=== PATIENT | male | born 1940 | race Caucasian/White ===

== ENCOUNTER 2016-08-24 09:54 | Emergency (ER) | payer OTHER ==
[2016-08-24 10:14] VITALS: TEMP 98.2; BMI 27.6
--- NOTE | 2016-08-24 11:48 | PDOC ---
[id number] No Limitations - History of Present Illness Initial Comments: CHIEF COMPLAINT: 76 y/o afebrile male with PMH HTN, GERD and anxiety c/o abd pain and diarrhea for the past 3 days. HISTORY OF PRESENT ILLNESS: The patient states for the past 3 days he's had watery diarrhea and abdominal pain. He also admits to decreased appetite. He denies f/c, n/v, cough, CP, SOB, back pain, hematuria, dysuria. He has not taken anything for his pain. Vital signs on arrival are within normal limits. REVIEW OF SYSTEMS: GENERAL/CONSTITUTIONAL: No fever/chills. No weakness. No weight change. HEAD, EYES, EARS, NOSE AND THROAT: No change in vision. No ear pain or discharge. No sore throat. CARDIOVASCULAR: No chest pain or shortness of breath. RESPIRATORY: No cough, wheezing, or hemoptysis. GASTROINTESTINAL: +abd pain and diarrhea. No nausea or vomiting. GENITOURINARY: No dysuria, frequency, or change in urination. MUSCULOSKELETAL: No joint or muscle swelling or pain. No neck or back pain. SKIN: No rash or easy bruising. NEUROLOGIC: No headache, vertigo, loss of consciousness, or loss of sensation. PHYSICAL EXAM: GENERAL: The patient is awake, alert, and fully oriented, in no acute distress. He is uncomfortable appearin. HEAD: Normal with no signs of trauma. ENT: Pupils equal, round and reactive to light, extraocular movements intact, sclera anicteric, conjunctiva clear. Neck supple. LUNGS: Clear to auscultation bilaterally. Normal excursion. No respiratory distress or use of accessory muscles. CV: RRR, S1/S2, no MRG. Cap refill < 2 sec. ABDOMEN: Soft, non-distended, TTP of RLQ. No rebound, guarding or rigidity. Negative psoas and obturator signs. Negative Skelton's sign. EXTREMITIES: Normal range of motion, no edema. NEUROLOGICAL: Normal speech, normal gait. CN II-XII grossly intact. PSYCH: Normal mood, normal affect. SKIN: Warm, dry, normal turgor, no rashes or lesions noted. 0 <Hailee Harding - Last Filed: 08/24/16 16:57> <Jasper De Leon - Last Filed: 08/30/16 18:37> - General Chief Complaint: Pain Stated Complaint: ABD PAIN, DIARRHEA Time Seen by Provider: 08/24/16 11:33 Past History - Past Medical History Cancer: Yes (Laryngeal cancer 2004) HTN: Yes - Psycho/Social/Smoking Cessation Hx Suicidal Ideation: No Smoking History: Never smoked Information on smoking cessation initiated: No Hx Alcohol Use: No Drug/Substance Use Hx: No Substance Use Type: None <Hailee Harding - Last Filed: 08/24/16 16:57> <Jasper De Leon - Last Filed: 08/30/16 18:37> - Past Medical History Allergies/Adverse Reactions: Allergies Allergy/AdvReac Type Severity Reaction Status Date / Time No Known Allergies Allergy Verified 08/24/16 10:13 Home Medications: Ambulatory Orders Diazepam 5 mg PO DAILY 08/24/16 Omeprazole 40 mg PO DAILY 08/24/16 Valsartan/Hydrochlorothiazide [Valsartan-Hctz 80-12.5 mg Tab] 80 mg PO DAILY 04/30 *Physical Exam - Vital Signs Last Vital Signs Temp Pulse Resp BP Pulse Ox 98.2 F 85 18 159/90 97 08/24/16 10:11 08/24/16 10:11 08/24/16 10:11 08/24/16 10:11 08/24/16 10:11 <Hailee Harding - Last Filed: 08/24/16 16:57> - Vital Signs Last Vital Signs Temp Pulse Resp BP Pulse Ox 98.2 F 81 20 148/104 97 08/24/16 10:11 08/24/16 17:18 08/24/16 17:18 08/24/16 17:18 08/24/16 10:11 <Jasper De Leon - Last Filed: 08/30/16 18:37> ED Treatment Course - LABORATORY CBC & Chemistry Diagram: 08/24/16 12:18 08/24/16 12:19 <Hailee Harding - Last Filed: 08/24/16 16:57> - LABORATORY CBC & Chemistry Diagram: 08/24/16 12:18 08/24/16 12:19 - ADDITIONAL ORDERS Additional order review: 08/24/16 12:18 RBC 4.59 MCV 94.0 MCHC 33.2 RDW 14.3 MPV 9.1 Neutrophils % 70.8 Lymphocytes % 20.4 Monocytes % 7.9 Eosinophils % 0.5 Basophils % 0.4 - Medications Given in the ED: ED Medications Discontinued Medications Generic Name Dose Route Start Last Admin Trade Name Julee PRN Reason Stop Dose Admin Acetaminophen 1,000 mg 08/24/16 11:49 08/24/16 12:21 Ofirmev Injection - IVPB 08/24/16 11:50 1,000 mg ONCE ONE Administration Sodium Chloride 1,000 mls @ 1,000 mls/hr 08/24/16 11:49 08/24/16 12:21 Normal Saline - IV 08/24/16 12:48 1,000 mls/hr ASDIR STA Administration <Jasper De Leon - Last Filed: 08/30/16 18:37> Medical Decision Making - Medical Decision Making A/P: 76 y/o afebrile male with abdominal pain and diarrhea for the past 3 days. Plan is as follows: 1. Labs 2. UA 3. IV fluids 4. IV ofirmev 5. CT scan abd/pelvis Labs unremarkable UA normal CT scan abd/pelvis IMPRESSION: No findings of acute pathology. Gave the patient all of his results. He states he feels much better after tylenol. He does admit his symptoms started after he ate a spicy pepper and something with red sauce on it. he admits he is from [place] and is not used to the food here. Will give him a PO zantac and discharge to home with supportive care instructions. The patient was instructed to return to the ER with any worsening or concerning symptoms. The patient verbalizes understanding of all instructions, has no further questions and is awaiting discharge. <Hailee Harding - Last Filed: 08/24/16 16:57> - Medical Decision Making The patient was seen and evaluated in conjunction with MATHIEU Harding under my direct supervision, ancillary studies were reviewed. I agree with the plan as outlined by MATHIEU Harding . <Jasper De Leon - Last Filed: 08/30/16 18:37> *DC/Admit/Observation/Transfer <Hailee Harding - Last Filed: 08/24/16 16:57> <Jasper De Leon - Last Filed: 08/30/16 18:37> Diagnosis at time of Disposition: Gastritis Qualifiers: Gastritis type: unspecified gastritis Chronicity: acute Gastritis bleeding: without bleeding Qualified Code(s): K29.00 - Acute gastritis without bleeding - Discharge Dispostion Disposition: HOME Condition at time of disposition: Improved - Referrals Referrals: Nilson Camacho MD [Primary Care Provider] - - Patient Instructions Printed Discharge Instructions: DI for Gastritis, DI for Gastroesophageal Reflux Disease (GERD), GERD Diet Additional Instructions: Discharge instructions: -You can take over the counter tylenol (650mg every 4 hours for pain if needed) -You can take over the counter Pepcid for gastritis symptoms -Try to follow suggested diet to help prevent symptoms -Return to the ER with any worsening or concerning symptoms.
[2016-08-24] MEDS ORDERED: SODIUM CHLORIDE 1,000 ML IV STA (11:49)
[2016-08-24] MEDS ORDERED: ACETAMINOPHEN 1000 MG/100 ML VIAL (NON FORMULARY) IVPB ONE (11:49)
[2016-08-24] MEDS ORDERED: ACETAMINOPHEN INJECTION 100 ML IVPB ONE (11:55)
[2016-08-24 12:33] LABS: BASOPHIL 0.4 % (0-2.0); EOSINOPHIL 0.5 % (0-4.5); MCH 31.2 pg (25.7-33.7); MCHC 33.2 g/dl (32.0-35.9); MEAN PLT VOLUME 9.1 fl (7.5-11.1); NEUTROPHILS 70.8 % (42.8-82.8); PLATELET COUNT 261 K/MM3 (134-434); RDW 14.3 % (11.9-15.9); WHITE BLOOD COUNT 8.3 K/mm3 (4.0-10.0)
[2016-08-24 12:35] LABS: URINE APPEARANCE CLEAR; URINE BILIRUBIN NEGATIVE (NEGATIVE); URINE BLOOD NEGATIVE (NEGATIVE); URINE COLOR YELLOW; URINE GLUCOSE (UA) NEGATIVE (NEGATIVE); URINE KETONE NEGATIVE (NEGATIVE); URINE LEUK ESTERASE NEGATIVE (NEGATIVE); URINE NITRITE NEGATIVE (NEGATIVE); URINE PROTEIN NEGATIVE (NEGATIVE); URINE UROBILINOGEN NEGATIVE E.U./dl (0.2-1.0)
[2016-08-24 13:33] LABS: ALBUMIN 4.1 g/dl (3.4-5.0); ALK PHOS 69 U/L (45-117); ANION GAP 11 (8-16); BILIRUBIN,TOTAL 0.8 mg/dL (0.2-1.0); CALCIUM 9.2 mg/dL (8.5-10.1); CO2 28 mmol/L (21-32); CREATININE 0.9 mg/dL (0.7-1.3); GLUCOSE,RANDOM 103 mg/dL (74-106); SGOT/AST 23 U/L (15-37); SGPT/ALT 26 U/L (12-78); TOT PROT 8.3 g/dl (6.4-8.2)
[2016-08-24 13:35] LABS: TROPONIN I < 0.02 ng/ml (0.00-0.05)
[2016-08-24] MEDS ORDERED: RANITIDINE HCL 150 MG TABLET (FP) PO ONE (16:57)
[2016-08-24 17:19] VITALS: BP 148/104; PULSE 81
== END 2016-08-24 17:19 | disposition home or self-care (01) ==
LOC: JER 09:54
PROC: 3E033NZ Introduction of Analgesics, Hypnotics, Sedatives into Peripheral Vein, Percutaneous Approach (ICD-10-PCS; principal; 2016-08-24)
DX: K29.00 Acute gastritis without bleeding (principal); I10 Essential (primary) hypertension; K21.9 Gastro-esophageal reflux disease without esophagitis; F41.9 Anxiety disorder, unspecified
CPT/HCPCS: 36415; 74176-TC; 80053; 81003; 82550; 83690; 84484; 85025; 99283-25; Q9967

== ENCOUNTER 2017-12-08 09:51 | Day surgery (SDC) | payer OTHER ==
[2017-12-06 19:13] VITALS: BMI 27.7
--- NOTE | 2017-12-08 09:49 | HP ---
History & Physical Update - History History: No Change - Physical Physical: No Change - Assessment Assessment: No Change - Plan Plan: No Change (75 year old man with bilateral inguinal hernia , left larger than right , incarcerated. Risks , benefits and complications were explained, including, infection , urinary retention , bleeding, pain, and conversion to open, and recurrence.)
[2017-12-08] MEDS ORDERED: BUPIVACAINE HCL/PF 0.5% (5MG/ML) 10 ML VIAL ONE (13:34)
[2017-12-08] MEDS ORDERED: MIDAZOLAM HCL 2 MG/2 ML SINGLE DOSE VIAL ONE (13:51)
[2017-12-08] MEDS ORDERED: fentaNYL CITRATE 250 MCG/5 ML VIAL ONE (13:56)
[2017-12-08] MEDS ORDERED: LIDOCAINE HCL/PF 2% SDV 5ML VIAL ONE (13:58)
[2017-12-08] MEDS ORDERED: ceFAZolin SODIUM 1 GM VIAL IVPB ONE (13:58)
[2017-12-08] MEDS ORDERED: PROPOFOL 20 ML ONE (13:58)
[2017-12-08] MEDS ORDERED: ROCURONIUM BROMIDE 50 MG/5 ML VIAL ONE ×2 (14:00→15:09)
[2017-12-08] MEDS ORDERED: DEXAMETHASONE SOD PHOSPHATE 4 MG/1 ML VIAL ONE (16:03)
[2017-12-08] MEDS ORDERED: ONDANSETRON 4 MG/2 ML VIAL ONE (16:03)
[2017-12-08] MEDS ORDERED: GLYCOPYRROLATE 0.2 MG/1 ML VIAL ONE ×2 (16:39→16:42)
[2017-12-08] MEDS ORDERED: NEOSTIGMINE METHYLSULFATE 0.5 MG/ML - 10 ML MDV ONE (16:39)
--- NOTE | 2017-12-08 16:55 | OP ---
Operative Note - Note: Operative Date: 12/08/17 Pre-Operative Diagnosis: Bilateral inguinal hernia, incarcerated. Operation: Laparoscopic repair of bilateral inginal hernia , with mesh. Findings: Large and wide indirect sac on the left side, Indirect hernia on left. Wide internal ring on right. Repaired with 3D max mesh , medium size. Implants: 3D max mesh , medium size bilaterally. Post-Operative Diagnosis: Same as Pre-op Surgeon: Anai Suarez Thread Trimmer: Rimma George Anesthesiologist/DEPUTY CHIEF COUNSEL: Reynaldo Tamayo Anesthesia: General Specimens Removed: Left sided indirect hernia sac. Estimated Blood Loss (mls): 30 Operative Report Dictated: Yes
[2017-12-08] MEDS ORDERED: ACETAMINOPHEN 500 MG TABLET (FP) PO PRN (16:58)
--- NOTE | 2017-12-08 17:03 | SURG ---
Surgery Lepidopterist Note Lepidopterist: Rimma George PA-C Date of Service: 12/08/17 Diagnosis: Bilateral inguinal hernia, incarcerated. Procedure: Laparoscopic repair of bilateral inginal hernia , with mesh. I was present for the entirety of the operative procedure. For further detail, please refer to operative report. Visit type - Case Type Case Type: Scheduled - Emergency Emergency Visit: No - New patient This patient is new to me today: Yes Date on this admission: 12/08/17
[2017-12-08] MEDS ORDERED: BUPIVACAINE HCL/PF (5 MG/ML) 30 ML VIAL IJ ONE (17:06)
[2017-12-08] MEDS ORDERED: ACETAMINOPHEN 1000 MG/100 ML VIAL (NON FORMULARY) IVPB ONE ×2 (18:00→18:06)
--- NOTE | 2017-12-08 20:14 | OP ---
DATE OF OPERATION: 12/08/2017 PREOPERATIVE DIAGNOSIS: Bilateral inguinal hernias. Left side is large, indirect, inguinoscrotal hernia. POSTOPERATIVE DIAGNOSIS: Bilateral inguinal hernias. Left side is large, indirect, inguinoscrotal hernia. OPERATIVE PROCEDURE: Laparoscopic repair of bilateral incarcerated inguinal hernias with mesh. SURGEON: Kg Suarez MD PERCH MACHINE INSPECTOR: MATHIEU Wetzel ANESTHESIA: General. OPERATIVE DESCRIPTION: This 77-year-old man had a large, painful left inguinal hernia which was incarcerated and hard to reduce. He also had a right-sided inguinal hernia. The patient was brought in for laparoscopic repair of bilateral inguinal hernias. Consent was obtained. The risks, benefits and complications had been discussed with the patient. The patient was given general anesthesia. A Townsend catheter was placed in the bladder, which was removed right after the surgery. The patient was given a gram of Ancef. The lower abdomen was painted and draped. A horizontal incision was made about 2 fingerbreadths below the umbilicus of about 3 cm. This was deepened through the skin and subcutaneous fat. The anterior rectus sheath was incised on either side and the posterior rectus sheath was divided in the midline. Space was created between the posterior rectus sheath and peritoneum. This was carried down all the way toward the pubic symphysis. A dilator and a spacer were introduced through this space all the way to the pubic symphysis. The spacer was then fitted to create a preperitoneal space on both sides of the midline. Once this was created, the spacer was removed, the trocar balloon was inflated and the trocar was locked in space to create a closed space. The space was inflated with carbon dioxide at 6 L per minute with a maximum intraabdominal pressure of 15 mmHg. A 10-mm camera was inserted into the space. The camera was switched between 10- and 5-mm, 30-degree as well as 0-degree camera. Under direct vision, two 5-mm trocars were inserted on either side of the midline below the balloon of the trocar. This was noted entering the abdominal cavity under direct vision with the camera. The pubic symphysis and the arch on either side were identified, and all loose area tissue was from the anterior abdominal wall on its posterior aspect. This was carried laterally all the way past the cord structures. On the left side, the cord structures were identified and retracted anteriorly away from the vessels. There was a large, wide indirect hernia going all the way down into the scrotum. This was carefully and brought into the abdominal cavity. This was then divided below the internal ring. This was twisted and then clipped with an Endoclip. The specimen and sac were removed and sent to Pathology. The peritoneum was retracted cephalad into the abdominal cavity. The lateral abdominal wall was also dissected so that the mesh could be placed behind the abdominal wall. The right side was also similarly dissected. There was no indirect hernia going into the scrotum. However, there was a wide internal ring. The peritoneum was again retracted back into the abdominal cavity. Once this was done, the posterior abdominal wall and the groin were ready for placement of a mesh. A 3DMax mesh was placed on either side, the right one going on the right, the left one going on the left. This was of medium size. For the right side, mesh was introduced. It was folded all the way and introduced through the 10-mm port down to the pubic symphysis. Once this was done, the camera was introduced into the space. The letter M was filled medially towards the pubic symphysis, and the mesh was unrolled laterally. The mesh was anchored over the pubic crest with a metallic tacker, unrolled laterally, and laterally, it was anchored with absorbable mesh. A similar procedure was done on the left, introducing the left-sided mesh. This was also anchored below the pubic crest with a metallic tacker and then unrolled laterally and anchored laterally at the level of the anterior-superior iliac spine with the absorbable tacker. Another tacker was placed anteriorly with the angulated absorbable tacker. Both the meshes were adequately placed. The space was irrigated. Estimated blood loss was about 20-30 mL. Hemostasis was satisfactory. Sponge count and instrument count were correct. There was some oozing at the pubic symphysis, which was controlled. There was no bleeding at the completion of the procedure. There was small bleeding from the left inferior epigastric artery. This was controlled with a hemoclip. The abdomen was then deflated, allowing the peritoneum to come against the anterior abdominal wall, holding the mesh again against the anterior abdominal wall. Thus, the repair was adequately performed. The anterior rectus sheath was approximated with interrupted and [id number] 2-0 Vicryl sutures. Next, 0.5% Marcaine was injected into the wound. All instruments were removed. The skin and subcutaneous tissue were approximated with buried interrupted 4-0 Monocryl sutures. Dermabond was applied across the skin edges. The patient tolerated the procedure well, was extubated, and sent to the recovery room in satisfactory and stable condition. Tamara PECK/[id number] cc:
[2017-12-08] MEDS: oxyCODONE HCL 5 MG TABLET PO PRN (21:55)
--- NOTE | 2017-12-09 08:14 | PN ---
Progress Note (short form) - Note Progress Note: Anesthesia post Op Pt seen and examined S:Alert and awake mild discomfort O: Vital Signs Temperature 98.2 F 12/09/17 06:00 Pulse Rate 78 12/09/17 06:00 Respiratory Rate 20 12/08/17 22:00 Blood Pressure 143/83 12/09/17 06:00 O2 Sat by Pulse Oximetry (%) 97 12/08/17 22:00 A/P: s/p lap inguinal hernia bilateral Doing well post op Continue current care Sergio Hernandes MD
[2017-12-09] MEDS: oxyCODONE HCL 5 MG TABLET PO PRN ×2 (08:46→13:50)
[2017-12-09] MEDS: ACETAMINOPHEN 325 MG TABLET (FP) PO PRN ×2 (08:47→13:50)
[2017-12-09] MEDS ORDERED: clonazePAM 0.5 MG TABLET PO ONE (11:15)
[2017-12-09] MEDS ORDERED: LOSARTAN POTASSIUM 50 MG TABLET (FP) PO ONE (11:15)
--- NOTE | 2017-12-09 14:14 | PN ---
Progress Note, Physician - Current Medication List Current Medications: Active Medications Acetaminophen (Tylenol -) 500 mg PO Q4H PRN PRN Reason: PAIN LEVEL 1-5 Last Admin: 12/09/17 00:56 Dose: 500 mg Acetaminophen (Tylenol -) 325 mg PO Q6H PRN PRN Reason: PAIN 6-10 Last Admin: 12/09/17 13:50 Dose: 325 mg Fentanyl (Sublimaze Injection -) 25 mcg IVPUSH [id number] PRN PRN Reason: PAIN-PACU ORDER X 4 DOSES ONLY Oxycodone HCl (Roxicodone -) 5 mg PO Q6H PRN PRN Reason: PAIN 6-10 Last Admin: 12/09/17 13:50 Dose: 5 mg - Objective Vital Signs: Vital Signs Temperature 98.2 F 12/09/17 09:48 Pulse Rate 74 12/09/17 09:48 Respiratory Rate 20 12/09/17 09:48 Blood Pressure 147/91 12/09/17 09:48 O2 Sat by Pulse Oximetry (%) 97 12/08/17 22:00 Assessment/Plan Patient is alert and oriented. Abdomen is soft, not tender. Tolerating diet, ' Wound is clean. Plan : Discharge home. Colace for bowel movement.
[2017-12-09 14:32] VITALS: BP 162/85; PULSE 73; TEMP 98
--- NOTE | 2017-12-12 16:47 | PATH ---
Surgical Pathology Report Patient Name: ROSA HANEY [facility]. Rec. #: [id number] /Age/Gender: 1940 (Age: 77) / M Account: [id number] Location: AMBULATORY SURG Taken: 12/08/2017 Received: 12/11/2017 Reported: 12/12/2017 Physicians: Kg Suarez M.D. Specimen(s) Received HERNIA SAC Clinical History Bilateral inguinal hernia Final Diagnosis HERNIA SAC, RESECTION: CONSISTENT WITH HERNIA SAC. Electronically Signed Loretta Rosario M.D. Gross Description Received in formalin labeled with "hernia sac", is a portion of weston membranous tissue measuring 4.5 x 1.5 x 2.3 cm. No focal lesion present. Tyre Finisher And Examiner sections specimen in one cassette KWS/12/11/2017 sulki/12/11/2017
== END 2017-12-09 15:25 | disposition home or self-care (01) ==
LOC: JASUSAT 09:51 → JASU-SURG 09:51 → J6S 18:45 → JASUSAT 12-09 15:25
PROVIDERS: ATTEND Specialist
PROC: 0YUA4JZ Supplement Bilateral Inguinal Region with Synthetic Substitute, Percutaneous Endoscopic Approach (ICD-10-PCS; principal; 2017-12-08 11:30)
DX: K40.00 Bilateral inguinal hernia, with obstruction, without gangrene, not specified as recurrent (principal)
CPT/HCPCS: 88302-TC; 94760; J0131